=== PATIENT | male | born 2000 | race Caucasian/White ===

== ENCOUNTER 2022-07-24 12:00 | Inpatient (IN) | payer OTHER ==
[~2022-07-24] VITALS: Ht 172.7 cm; Wt 68.2 kg
[2022-07-24] MEDS ORDERED: GuaiFENesin/D-METHORPHAN [SUGAR-FREE] 200-20MG/10 ML SYRUP UDCUP PO PRN (15:30)
[2022-07-24] MEDS ORDERED: ALBUTEROL SULFATE HFA 90 MCG/PUFF 8 GM INHALER IH PRN (15:30)
[2022-07-24] MEDS ORDERED: MAGNESIUM HYDROXIDE SUSPENSION 30 ML UDCUP PO PRN (15:30)
[2022-07-24] MEDS ORDERED: PETROLATUM,WHITE 28 GM JELLY TP PRN (15:30)
[2022-07-24] MEDS ORDERED: IBUPROFEN 400 MG TABLET PO PRN (15:30)
[2022-07-24] MEDS ORDERED: DOCUSATE SODIUM 100 MG CAPSULE PO PRN (15:30)
[2022-07-24] MEDS ORDERED: NICOTINE 14 MG/24 HOUR PATCH TD PRN (15:30)
[2022-07-24] MEDS ORDERED: ONDANSETRON HCL 4 MG TABLET PO PRN (15:30)
[2022-07-24] MEDS ORDERED: LOPERAMIDE HCL 2 MG CAPSULE PO PRN (15:30)
[2022-07-24] MEDS ORDERED: MAG HYDROX/AL HYDROX/SIMETH ES 30 ML SUSPENSION UDCUP PO PRN (15:30)
[2022-07-24] MEDS ORDERED: CloNIDine HCL 0.1 MG TABLET PO PRN (15:30)
[2022-07-24 16:04] LABS: BASOPHILS % (AUTO) 0.9 % (0.0-2.0); EOSINOPHILS % (AUTO) 0.3 % (1.0-6.0); HEMATOCRIT 41.3 % (41-53); HEMOGLOBIN 13.7 g/dL (13.5-17.5); LYMPHOCYTES # (AUTO) 1.4 K/uL (1.0-4.8); LYMPHOCYTES % (AUTO) 29.6 % (22.0-44.0); MEAN CORPUSCULAR HEMOGLOBIN 28.2 pg (26.0-34.0); MEAN CORPUSCULAR HGB CONC 33.1 G/dL (31.0-37.0); MEAN CORPUSCULAR VOLUME 85 fL (80-100); MONOCYTES # (AUTO) 0.5 K/uL (0.1-1.0); MONOCYTES % (AUTO) 9.9 % (2.0-9.0); NEUTROPHILS # (AUTO) 2.8 K/uL (1.8-7.7); NEUTROPHILS % (AUTO) 59.3 % (40.0-70.0); PLATELET COUNT (AUTO) 134 K/uL (150-450); RED BLOOD CELL COUNT(AUTO) 4.84 MIL/uL (4.50-5.90); RED CELL DISTRIBUTION WIDTH 13.4 % (11.5-14.5)
[2022-07-24 16:15] LABS: ANION GAP 7 mmol/L (8-16); CALCIUM, TOTAL 9.6 mg/dL (8.8-10.5); CARBON DIOXIDE 29 mmol/L (22-29); CHLORIDE 102 mmol/L (98-107); CREATININE 0.89 mg/dL (0.60-1.30); GLOMERULAR FILTR. RATE CALC > 60 mL/min (>60); GLUCOSE,RANDOM 97 mg/dL (70-110); POTASSIUM 3.7 mmol/L (3.5-5.1); SODIUM SERUM 138 mmol/L (136-145); UREA NITROGEN, BLOOD 10 mg/dL (7-18)
[2022-07-24 16:22] LABS: ALANINE AMINOTRANSFERASE 19 U/L (12-78); ALBUMIN 4.6 g/dL (3.4-5.0); ALKALINE PHOSPHATASE 94 U/L (46-116); ASPARTATE AMINOTRANSFERASE 22 U/L (15-37); BILIRUBIN,TOTAL 0.4 mg/dL (0.1-1.0); TOTAL PROTEIN, SERUM 8.4 g/dL (6.4-8.2)
[2022-07-24 16:33] LABS: COVID AG,FIA SOURCE NASAL SWAB
[2022-07-24 22:37] VITALS: BP 132/93
[2022-07-25 04:46] VITALS: BP 138/79
[2022-07-25 08:12] VITALS: BP 121/73
[2022-07-25 16:07] VITALS: BP 115/75
[2022-07-25] MEDS: ValACYclovir HCL 500 MG TABLET PO SCH ×2 (16:21→20:38)
[2022-07-25 20:30] VITALS: BP 134/71
[2022-07-25] MEDS: ACETAMINOPHEN 325 MG TABLET PO PRN (21:54)
[2022-07-26 04:00] VITALS: BP 129/70
[2022-07-26 07:06] LABS: HIV 1-2 SCREEN 4TH GEN W/RFLX Non Reactive (Non Reactive)
[2022-07-26] MEDS: ValACYclovir HCL 500 MG TABLET PO SCH ×3 (08:37→21:41)
[2022-07-26 08:41] VITALS: BP 127/86
[2022-07-26 16:15] VITALS: BP 133/63
[2022-07-26 20:00] VITALS: BP 142/77
[2022-07-27 05:52] VITALS: BP 140/78
[2022-07-27 08:15] VITALS: BP 145/72
[2022-07-27] MEDS: ValACYclovir HCL 500 MG TABLET PO SCH ×3 (08:33→20:25)
[2022-07-27 16:17] VITALS: BP 176/77
[2022-07-27] MEDS: ACETAMINOPHEN 325 MG TABLET PO PRN (16:35)
[2022-07-27 20:30] VITALS: BP 131/69
[2022-07-28 06:05] VITALS: BP 133/78
[2022-07-28 07:34] VITALS: BP_SYST 114; BP_SYST 126; BP_DIAS 72; BP_DIAS 77
[2022-07-28] MEDS: ValACYclovir HCL 500 MG TABLET PO SCH ×3 (09:16→20:37)
[2022-07-28 20:00] VITALS: BP 127/64
[2022-07-29 04:37] VITALS: BP 130/63
[2022-07-29 07:19] VITALS: BP 128/64
[2022-07-29] MEDS: ValACYclovir HCL 500 MG TABLET PO SCH ×3 (08:30→20:28)
[2022-07-29 18:18] VITALS: BP 131/70
[2022-07-29 20:18] VITALS: BP 146/60
[2022-07-30 05:28] VITALS: BP 122/72
[2022-07-30 07:43] VITALS: BP 126/79
[2022-07-30] MEDS: ValACYclovir HCL 500 MG TABLET PO SCH ×2 (08:45→15:21)
[2022-07-30] MEDS ORDERED: VALA500T34 PO (13:42)
== END 2022-07-30 16:09 | disposition home or self-care (01) | DRG 596 ==
LOC: EMS 12:04 → 6S 20:22
PROVIDERS: ADMIT Internal Medicine; ATTEND Internal Medicine
DX: B02.9 Zoster without complications (principal); B01.9 Varicella without complication; L08.0 Pyoderma; Z20.822 Contact with and (suspected) exposure to COVID-19; Z79.899 Other long term (current) drug therapy
CPT/HCPCS: 80053; 85025; 86592; 86787; 87040; 87389; 99285